=== PATIENT | female | born 1970 | race Caucasian/White ===

== ENCOUNTER 2016-11-01 14:52 | Emergency (ER) | payer BC, OTHER ==
[2016-11-01 15:29] LABS: CHLORIDE,CL 103 mmol/L (98-107); SODIUM,NA 140 mmol/L (136-145)
[2016-11-01] MEDS ORDERED: Diltiazem 120 MG Cap.CD PO ONE (15:37)
--- NOTE | 2016-11-01 15:44 | EDM.PDOC ---
ED HPI GENERAL MEDICAL PROBLEM - General Chief Complaint: General Stated Complaint: rapid heart, chest discomfort Time Seen by Provider: 11/01/16 15:17 Source of Information: Reports: Patient History Limitations: Reports: No limitations - History of Present Illness INITIAL COMMENTS - FREE TEXT/NARRATIVE: Has a history of Afib with ablation in the past. Now with intermittent palpitations for past several weeks. Much more frequent over past several days. No chest pain Mild SOB Onset: gradual Duration: Week(s):, Recurring Location: Reports: chest Quality: Reports: Dull Severity: moderate Context: Reports: Activity Associated Symptoms: Reports: no other symptoms - Related Data Home Meds: Home Meds Diltiazem HCl [Diltiazem 24Hr ER] 120 mg PO DAILY #14 cap.er.24h 11/01/16 [Rx] ED ROS GENERAL - Review of Systems Review Of Systems: See Below Constitutional: Reports: no symptoms HEENT: Reports: No symptoms Respiratory: Reports: No Symptoms Cardiovascular: Reports: Palpitations GI/Abdominal: Reports: No symptoms Musculoskeletal: Reports: no symptoms ED EXAM, GENERAL - Physical Exam Exam: See Below Exam Limited By: No limitations General Appearance: alert, WD/WN, no apparent distress Throat/Mouth: Normal oropharynx Neck: supple Respiratory/Chest: lungs clear, normal breath sounds Cardiovascular: regular rate, rhythm EKG INTERPRETATION Rhythm: NSR Course - Vital Signs Last Recorded V/S: Last Vital Signs Temp 36.8 C 11/01/16 14:52 Pulse 85 11/01/16 14:52 Resp 18 11/01/16 14:52 BP 120/56 L 11/01/16 14:52 Pulse Ox 100 11/01/16 14:52 - Orders/Labs/Meds Orders: Active Orders 24 hr Category Date Time Status Cardiac Monitoring [RC] . DIRECTED Care 11/01/16 15:13 Active EKG Documentation Completion [RC] ASDIRECTED Care 11/01/16 15:01 Active Chest 1V Frontal [CR] Stat Exams 11/01/16 15:01 Taken Diltiazem [Cardizem CD] Med 11/01/16 15:37 Once 120 mg PO ONETIME ONE Labs: Laboratory Tests 11/01/16 11/01/16 Range/Units 15:00 15:00 WBC 6.2 (4.0-10.2) K/uL RBC 4.34 (3.77-5.09) M/uL Hgb 12.8 (11.7-15.5) g/dL Hct 39.1 (34.0-46.0) % MCV 90.1 (84.0-98.0) fL MCH 29.5 (28.2-33.3) pg MCHC 32.7 (31.7-36.0) g/dL RDW 12.7 (11.2-14.1) % Plt Count 318 (150-350) K/uL Neut % (Auto) 60.0 (45.0-80.0) % Lymph % (Auto) 31.8 (10.0-50.0) % [place] % (Auto) 5.3 (2.0-14.0) % Eos % (Auto) 1.8 (0.0-5.0) % Baso % (Auto) 1.1 (0.0-2.0) % Neut # (Auto) 3.71 (1.40-7.00) K/uL Lymph # (Auto) 1.97 (0.50-3.50) K/uL [place] # (Auto) 0.33 (0.00-1.00) K/uL Eos # (Auto) 0.11 (0.00-0.50) K/uL Baso # (Auto) 0.07 (0.00-0.20) K/uL Sodium 140 (136-145) mmol/L Potassium 3.5 (3.5-5.1) mmol/L Chloride 103 (98-107) mmol/L Carbon Dioxide 26.3 (21.0-32.0) mmol/L BUN 11 (7-18) mg/dL Creatinine 0.72 (0.51-1.17) mg/dL Est Cr Clr Drug Dosing TNP Estimated GFR (MDRD) > 60 mL/min Glucose 119 H (74-106) mg/dL Calcium 8.4 L (8.5-10.1) mg/dL Total Bilirubin 1.0 (0.2-1.0) mg/dL AST 20 (15-37) U/L ALT 17 (12-78) U/L Alkaline Phosphatase 61 (46-116) IU/L Troponin I 0.000 (0.000-0.056) ng/mL Total Protein 7.4 (6.4-8.2) g/dL Albumin 3.9 (3.4-5.0) g/dL - Re-Assessments/Exams Free Text/Narrative Re-Assessment/Exam: 11/01/16 15:41 Pt stable in ER D/W pt, will start on oral Diltiazem and pt has previous appointment scheduled with cardiology on 11/13 Departure - Departure Time of Disposition: 15:45 Disposition: Home, Self-Care 01 Clinical Impression: Intermittent palpitations Prescriptions: Diltiazem HCl [Diltiazem 24Hr ER] 120 mg PO DAILY #14 cap.er.24h Forms: ED Department Discharge - My Orders Last 24 Hours: My Active Orders 11/01/16 15:01 EKG Documentation Completion [RC] ASDIRECTED Chest 1V Frontal [CR] Stat 11/01/16 15:13 Cardiac Monitoring [RC] . DIRECTED 11/01/16 15:37 Diltiazem [Cardizem CD] 120 mg PO ONETIME ONE - Assessment/Plan Last 24 Hours: My Active Orders 11/01/16 15:01 EKG Documentation Completion [RC] ASDIRECTED Chest 1V Frontal [CR] Stat 11/01/16 15:13 Cardiac Monitoring [RC] . DIRECTED 11/01/16 15:37 Diltiazem [Cardizem CD] 120 mg PO ONETIME ONE
[2016-11-01 19:18] VITALS: BP 116/70
== END 2016-11-01 16:00 | disposition home or self-care (01) ==
LOC: LL.ED 14:52 → MERGE 14:52 → LL.ED 16:00
DX: R00.2 Palpitations (principal); Z79.899 Other long term (current) drug therapy
CPT/HCPCS: 36415; 71010; 80053; 84484; 85025; 93005; 99285; A9270